=== PATIENT | male | born 1955 | race Caucasian/White ===

== ENCOUNTER → 2016-10-11 | Outpatient (CLI) | payer BC ==
[~2016-10-11] MED LIST: ASPI81TA28 PO; FINA5TAB PO; OMEG1CAP84 PO; TAMS0.4C59 PO
--- NOTE | 2016-10-11 12:48 | DIAGNOSTIC IMAGING REPORT ---
CHEST 2 VIEWS ROUTINE CLINICAL HISTORY: COUGH, CHILLS WITH FEVER cough COMPARISON STUDY: 02/12/2016 FINDINGS: The bones soft tissues and hemidiaphragms are normal. The cardiomediastinal silhouette is normal. The lungs are clear. The pulmonary vasculature is normal. IMPRESSION: Negative chest. Electronically signed by: Fred Friedman M.D. 10/11/2016 12:47 PM Dictated Date/Time: 10/11/2016 12:46 PM
== END | disposition home or self-care (01) ==
LOC: C.RAD1850 12:37
PROVIDERS: ATTEND Family Medicine
DX: R50.9 Fever, unspecified (principal); R05 Cough